=== PATIENT | female | born 1930 | race Caucasian/White ===

== ENCOUNTER 2017-07-10 08:33 | Emergency (ER) | payer MEDICARE, OTHER ==
[2017-07-10] MEDS ORDERED: Ondansetron 4 MG/2 ML SDV IVPUSH ONE (09:02)
[2017-07-10] MEDS ORDERED: HYDROmorphone 0.5 MG/0.5 ML SYRINGE IVPUSH ONE (09:04)
[2017-07-10] MEDS ORDERED: Sodium Chloride 0.9% 500 ML IV ONE (09:04)
[2017-07-10] MEDS ORDERED: Iopamidol 755 Mg/ML 100 ML Bottle IVPUSH ONE (09:08)
[2017-07-10] MEDS ORDERED: Sodium Chloride 0.9% 10 ML Syringe FLUSH ONE (09:08)
--- NOTE | 2017-07-10 09:12 | EDM.PDOC ---
ED HPI GENERAL MEDICAL PROBLEM - General Chief Complaint: Back Pain or Injury Stated Complaint: BACK PAIN Time Seen by Provider: 07/10/17 08:51 Source of Information: Reports: Patient, Family (Daughter) History Limitations: Reports: No Limitations - History of Present Illness INITIAL COMMENTS - FREE TEXT/NARRATIVE: The patient states that she developed nausea, vomiting, watery diarrhea, epigastric pain, and bilateral flank pain last night. She acknowledges that she has been feeling lightheaded when upright. She denies recent chest pain or palpitations. No recent urinary symptoms. The patient initially denied dyspnea, but later said that she had difficulty catching her breath. No prior similar symptoms. No recent illnesses. The patient was well up until last night. In the ED, the patient's initial blood pressure was found to be depressed at 90/ 60 with a heart rate elevated at 105, afebrile, saturating 88% on room air, however, the patient's oxygen saturation continued to decline after arrival. The patient's PCP is Dr. Rosibel Hadley. Abdomen Pain Score (Numeric/FACES): 5 - Related Data Allergies Allergy/AdvReac Type Severity Reaction Status Date / Time No Known Allergies Allergy Verified 07/10/17 10:40 Past Medical History Cardiovascular History: Reports: High Cholesterol (untreated), Hypertension Genitourinary History: Reports: Chronic Renal Insuffiency - Past Surgical History HEENT Surgical History: Reports: Cataract Surgery Female Surgical History: Reports: Hysterectomy Musculoskeletal Surgical History: Reports: Hip Replacement (right) Social & Family History - Tobacco Use Smoking Status *Q: Never Smoker Second Hand Smoke Exposure: No - Caffeine Use Caffeine Use: Reports: None - Alcohol Use Alcohol Use History: No - Recreational Drug Use Recreational Drug Use: No - Living Situation & Occupation Living situation: Reports: , with Spouse, Other (Independent living facility) Occupation: Retired ED ROS GENERAL - Review of Systems Review Of Systems: ROS reveals no pertinent complaints other than HPI. ED EXAM, GI/ABD - Physical Exam Exam: See Below Exam Limited By: No Limitations General Appearance: Alert, WD/WN, Mild Distress Eyes: Bilateral: Normal Appearance, EOMI Ears: Normal External Exam, Hearing Grossly Normal Nose: Normal Inspection, No Blood Throat/Mouth: Normal Inspection, Normal Lips, Normal Voice, No Airway Compromise Head: Atraumatic, Normocephalic Neck: Normal Inspection, Full Range of Motion Respiratory/Chest: No Respiratory Distress, Lungs Clear, Normal Breath Sounds, No Accessory Muscle Use, Other (Kyphotic) Cardiovascular: Regular Rate, Rhythm, No Edema, No Gallop, No JVD, No Murmur, No Rub, Other (2+ peripheral pulses. Cold nose, compared to forehead.) GI/Abdominal Exam: Normal Bowel Sounds, Soft, No Organomegaly, No Distention, No Abnormal Bruit, No Mass, Tender (Mild, central abdomen only. Essentially nontender elsewhere, including to the epigastric region.) (Female) Exam: Deferred Rectal (Female) Exam: Deferred Back Exam: Normal Inspection, Full Range of Motion, CVA Tenderness (L) (mild), CVA Tenderness (R) (mild) Extremities: Normal Inspection, Normal Range of Motion, No Pedal Edema, Normal Capillary Refill Neurological: Alert, Oriented, Normal Cognition, No Motor/Sensory Deficits Psychiatric: Normal Affect Skin Exam: Warm, Intact, Normal Color, No Rash, Diaphoretic (mild) Endotracheal Intubation - Endotracheal Intubation Time of Intubation: 10:05 ET Intubation Indication: Respiratory Failure Preparation: Suction, Balloon Tested, Difficult Airway Equip Pre-Oxygenation: Assisted with BVM, 100% FiO2 Anesthesia Meds: Propofol (4 mg) Placement: Orotracheal, Cuffed, Uncomplicated Placement Cords Visualized: Yes, Grade 2 ETT Size In mm: 8.0 Number of Attempts: 1 Confirmed By: CO2 Indicator, Bilateral Breath Sounds, Chest Xray Tube Secured By: By RT Course - Vital Signs Last Recorded V/S: Last Vital Signs Temp 37.0 C 07/10/17 08:40 Pulse 105 H 07/10/17 08:40 Resp 16 07/10/17 08:40 BP 90/60 07/10/17 08:40 Pulse Ox 88 L 07/10/17 08:40 Orthostatic Blood Pressure [ 84/53 Standing] Orthostatic Blood Pressure [ 74/55 Supine] - Orders/Labs/Meds Orders: Active Orders 24 hr Category Date Time Status EKG Documentation Completion [RC] STAT Care 07/10/17 09:06 Active Orthostatic Vital Signs [RC] ASDIRECTED Care 07/10/17 08:45 Active RT Ventilator ED, Adult [RC] ASDIRECTED Care 07/10/17 10:43 Active Chest 1V Frontal [CR] Stat Exams 07/10/17 09:20 Taken Chest 1V Frontal [CR] Stat Exams 07/10/17 10:20 Taken CBC W/O DIFF,HEMOGRAM [HEME] MOTH@0700 Lab 07/12/17 07:00 Ordered CBC W/O DIFF,HEMOGRAM [HEME] MOTH@0700 Lab 07/16/17 07:00 Ordered CBC W/O DIFF,HEMOGRAM [HEME] MOTH@0700 Lab 07/19/17 07:00 Ordered CBC W/O DIFF,HEMOGRAM [HEME] MOTH@0700 Lab 07/23/17 07:00 Ordered CBC W/O DIFF,HEMOGRAM [HEME] MOTH@0700 Lab 07/26/17 07:00 Ordered CBC W/O DIFF,HEMOGRAM [HEME] MOTH@0700 Lab 07/30/17 07:00 Ordered CULTURE BLOOD [BC] Stat Lab 07/10/17 09:40 Received CULTURE BLOOD [BC] Stat Lab 07/10/17 09:50 Received UA W/MICROSCOPIC [URIN] Stat Lab 07/10/17 10:31 Ordered Azithromycin [Zithromax] 500 mg Med 07/10/17 11:00 Active Sodium Chloride 0.9% [Normal Saline] 250 ml IV ONETIME Heparin Sodium/D5W [Heparin 25,000 Units in D5W 500 ML] Med 07/10/17 10:15 Active 25,000 units in 500 ml IV TITRATE Propofol [Diprivan 100 ML] 100 ml Med 07/10/17 10:45 Active IV TITRATE Sodium Chloride 0.9% [Normal Saline] 250 ml Med 07/10/17 09:15 Active IV ASDIRECTED Vancomycin Med 07/10/17 11:15 Ordered 625.95 mg IV Q12H Blood Culture x2 Reflex Set [OM.PC] Stat Oth 07/10/17 09:24 Ordered Desired Level of Sedation (RASS) [AST] Click To Edit Ot 07/10/17 10:42 Ordered NG [Nasogastric Orogastric Tube Insertion] [OM.PC] Ot 07/10/17 10:19 Ordered Routine Medication Orders Sodium Chloride (Normal Saline) 250 mls @ 80 mls/hr IV ASDIRECTED LUIS ANTONIO Last Admin: 07/10/17 09:26 Dose: 80 mls/hr Heparin Sodium/Dextrose (Heparin 25,000 Units In D5w 500 Ml) 25,000 units in 500 mls @ 10.015 mls/hr IV TITRATE LUIS ANTONIO; Protocol Last Admin: 07/10/17 10:39 Dose: 10.015 mls/hr Propofol (Diprivan 100 Ml) 100 mls @ 1.252 mls/hr IV TITRATE LUIS ANTONIO; Protocol Last Titration: 07/10/17 10:54 Dose: 30 mcg/kg/min, 7.511 mls/hr Titration: 07/10/17 10:49 Dose: 10 mcg/kg/min, 2.504 mls/hr Admin: 07/10/17 10:48 Dose: 5 mcg/kg/min, 1.252 mls/hr Azithromycin 500 mg/ Sodium (Chloride) 250 mls @ 250 mls/hr IV ONETIME ONE Stop: 07/10/17 11:59 Last Admin: 07/10/17 10:58 Dose: 250 mls/hr Vancomycin HCl (Vancomycin) 625.95 mg 15 mg/kg (625.95 mg) IV Q12H LUIS ANTONIO Labs: Laboratory Tests 07/10/17 07/10/17 07/10/17 Range/Units 08:55 08:55 08:55 WBC 11.37 H (3.98-10.04) K/mm3 RBC 3.81 L (3.98-5.22) M/mm3 Hgb 11.3 (11.2-15.7) gm/L Hct 34.8 (34.1-44.9) % MCV 91.3 (79.4-94.8) fl MCH 29.7 (25.6-32.2) pg MCHC 32.5 (32.2-35.5) g/dl RDW Std Deviation 41.9 (36.4-46.3) fL Plt Count 299 (182-369) K/mm3 MPV 10.6 (9.4-12.3) fl Neutrophils % (Manual) 81 H (40-60) % Band Neutrophils % 1 (0-10) % Lymphocytes % (Manual) 16 L (20-40) % Atypical Lymphs % 0 % Monocytes % (Manual) 2 (2-10) % Eosinophils % (Manual) 0 L (0.7-5.8) % Basophils % (Manual) 0 L (0.1-1.2) Platelet Estimate Adequate RBC Morph Comment Normal PT (9.5-12.1) SECONDS INR APTT (24-31) SECONDS D-Dimer, Quantitative 2.89 H (0.19-0.50) mg/L Puncture Site ABG pH (7.35-7.45) ABG pCO2 (35.0-45.0) mmHg ABG pO2 (80.0-100.0) mmHg ABG HCO3 (22.0-26.0) meq/L ABG O2 Saturation (96.0-97.0) % ABG Base Excess (-2-2.0) A-a Gradient mmHg O2 Delivery Device Oxygen Flow Rate FiO2 (21.00-100.00) % Sodium 135 L (136-145) mEq/L Potassium 4.2 (3.5-5.1) mEq/L Chloride 98 (98-107) mEq/L Carbon Dioxide 18 L (21-32) mEq/L Anion Gap 23.2 H (5-15) BUN 73 H (7-18) mg/dL Creatinine 3.6 H (0.55-1.02) mg/dL Est Cr Clr Drug Dosing 6.98 mL/min Estimated GFR (MDRD) 12 (>60) mL/min BUN/Creatinine Ratio 20.3 H (14-18) Glucose 239 H (83-115) mg/dL Lactic Acid (0.4-2.0) mmol/L Calcium 9.0 (8.5-10.1) mg/dL Magnesium 2.0 (1.8-2.4) mg/dl Total Bilirubin 0.5 (0.2-1.0) mg/dL AST 50 H (15-37) U/L ALT 29 (14-59) U/L Alkaline Phosphatase 75 (46-116) U/L Troponin I 1.900 H* (0.00-0.056) ng/mL Total Protein 7.8 (6.4-8.2) g/dl Albumin 3.1 L (3.4-5.0) g/dl Globulin 4.7 gm/dL Albumin/Globulin Ratio 0.7 L (1-2) Lipase 201 (73-393) U/L Urine Color (Yellow) Urine Appearance (Clear) Urine pH (5.0-8.0) Ur Specific [place] (1.005-1.030) Urine Protein (Negative) Urine Glucose (UA) (Negative) Urine Ketones (Negative) Urine Occult Blood (Negative) Urine Nitrite (Negative) Urine Bilirubin (Negative) Urine Urobilinogen (0.2-1.0) Ur Leukocyte Esterase (Negative) Urine RBC (0-5) /hpf Urine WBC (0-5) /hpf Ur Epithelial Cells (0-5) /hpf Urine Bacteria (FEW) /hpf Hyaline Casts (0-5) /lpf Urine Mucus (FEW) /hpf 07/10/17 07/10/17 07/10/17 Range/Units 08:55 09:40 09:45 WBC (3.98-10.04) K/mm3 RBC (3.98-5.22) M/mm3 Hgb (11.2-15.7) gm/L Hct (34.1-44.9) % MCV (79.4-94.8) fl MCH (25.6-32.2) pg MCHC (32.2-35.5) g/dl RDW Std Deviation (36.4-46.3) fL Plt Count (182-369) K/mm3 MPV (9.4-12.3) fl Neutrophils % (Manual) (40-60) % Band Neutrophils % (0-10) % Lymphocytes % (Manual) (20-40) % Atypical Lymphs % % Monocytes % (Manual) (2-10) % Eosinophils % (Manual) (0.7-5.8) % Basophils % (Manual) (0.1-1.2) Platelet Estimate RBC Morph Comment PT 11.4 (9.5-12.1) SECONDS INR 1.05 APTT 24 (24-31) SECONDS D-Dimer, Quantitative (0.19-0.50) mg/L Puncture Site Lt brachial ABG pH 7.11 L* (7.35-7.45) ABG pCO2 51.9 H (35.0-45.0) mmHg ABG pO2 59.0 L (80.0-100.0) mmHg ABG HCO3 15.7 L (22.0-26.0) meq/L ABG O2 Saturation 74.7 L (96.0-97.0) % ABG Base Excess 13.3 H (-2-2.0) A-a Gradient 388 mmHg O2 Delivery Device Nrb Oxygen Flow Rate 15.0 FiO2 0.00 L (21.00-100.00) % Sodium (136-145) mEq/L Potassium (3.5-5.1) mEq/L Chloride (98-107) mEq/L Carbon Dioxide (21-32) mEq/L Anion Gap (5-15) BUN (7-18) mg/dL Creatinine (0.55-1.02) mg/dL Est Cr Clr Drug Dosing mL/min Estimated GFR (MDRD) (>60) mL/min BUN/Creatinine Ratio (14-18) Glucose (83-115) mg/dL Lactic Acid 6.1 H (0.4-2.0) mmol/L Calcium (8.5-10.1) mg/dL Magnesium (1.8-2.4) mg/dl Total Bilirubin (0.2-1.0) mg/dL AST (15-37) U/L ALT (14-59) U/L Alkaline Phosphatase (46-116) U/L Troponin I (0.00-0.056) ng/mL Total Protein (6.4-8.2) g/dl Albumin (3.4-5.0) g/dl Globulin gm/dL Albumin/Globulin Ratio (1-2) Lipase (73-393) U/L Urine Color (Yellow) Urine Appearance (Clear) Urine pH (5.0-8.0) Ur Specific [place] (1.005-1.030) Urine Protein (Negative) Urine Glucose (UA) (Negative) Urine Ketones (Negative) Urine Occult Blood (Negative) Urine Nitrite (Negative) Urine Bilirubin (Negative) Urine Urobilinogen (0.2-1.0) Ur Leukocyte Esterase (Negative) Urine RBC (0-5) /hpf Urine WBC (0-5) /hpf Ur Epithelial Cells (0-5) /hpf Urine Bacteria (FEW) /hpf Hyaline Casts (0-5) /lpf Urine Mucus (FEW) /hpf 07/10/17 Range/Units 10:31 WBC (3.98-10.04) K/mm3 RBC (3.98-5.22) M/mm3 Hgb (11.2-15.7) gm/L Hct (34.1-44.9) % MCV (79.4-94.8) fl MCH (25.6-32.2) pg MCHC (32.2-35.5) g/dl RDW Std Deviation (36.4-46.3) fL Plt Count (182-369) K/mm3 MPV (9.4-12.3) fl Neutrophils % (Manual) (40-60) % Band Neutrophils % (0-10) % Lymphocytes % (Manual) (20-40) % Atypical Lymphs % % Monocytes % (Manual) (2-10) % Eosinophils % (Manual) (0.7-5.8) % Basophils % (Manual) (0.1-1.2) Platelet Estimate RBC Morph Comment PT (9.5-12.1) SECONDS INR APTT (24-31) SECONDS D-Dimer, Quantitative (0.19-0.50) mg/L Puncture Site ABG pH (7.35-7.45) ABG pCO2 (35.0-45.0) mmHg ABG pO2 (80.0-100.0) mmHg ABG HCO3 (22.0-26.0) meq/L ABG O2 Saturation (96.0-97.0) % ABG Base Excess (-2-2.0) A-a Gradient mmHg O2 Delivery Device Oxygen Flow Rate FiO2 (21.00-100.00) % Sodium (136-145) mEq/L Potassium (3.5-5.1) mEq/L Chloride (98-107) mEq/L Carbon Dioxide (21-32) mEq/L Anion Gap (5-15) BUN (7-18) mg/dL Creatinine (0.55-1.02) mg/dL Est Cr Clr Drug Dosing mL/min Estimated GFR (MDRD) (>60) mL/min BUN/Creatinine Ratio (14-18) Glucose (83-115) mg/dL Lactic Acid (0.4-2.0) mmol/L Calcium (8.5-10.1) mg/dL Magnesium (1.8-2.4) mg/dl Total Bilirubin (0.2-1.0) mg/dL AST (15-37) U/L ALT (14-59) U/L Alkaline Phosphatase (46-116) U/L Troponin I (0.00-0.056) ng/mL Total Protein (6.4-8.2) g/dl Albumin (3.4-5.0) g/dl Globulin gm/dL Albumin/Globulin Ratio (1-2) Lipase (73-393) U/L Urine Color Yellow (Yellow) Urine Appearance Slt cloudy H (Clear) Urine pH 5.0 (5.0-8.0) Ur Specific [place] 1.025 (1.005-1.030) Urine Protein Trace H (Negative) Urine Glucose (UA) Negative (Negative) Urine Ketones Trace H (Negative) Urine Occult Blood Trace-intact H (Negative) Urine Nitrite Negative (Negative) Urine Bilirubin Negative (Negative) Urine Urobilinogen 0.2 (0.2-1.0) Ur Leukocyte Esterase 1+ H (Negative) Urine RBC 0-5 (0-5) /hpf Urine WBC 5-10 H (0-5) /hpf Ur Epithelial Cells 0-5 (0-5) /hpf Urine Bacteria Many H (FEW) /hpf Hyaline Casts 0-5 (0-5) /lpf Urine Mucus Few (FEW) /hpf Meds: Medications Generic Name Dose Route Start Last Admin Trade Name Freq PRN Reason Stop Dose Admin Sodium Chloride 250 mls @ 80 mls/hr 07/10/17 09:15 07/10/17 09:26 Normal Saline IV 80 mls/hr ASDIRECTED LUIS ANTONIO Administration Heparin Sodium/Dextrose 25,000 units in 500 mls @ 10.015 mls/hr 07/10/17 10: 15 07/10/17 10:39 Heparin 25,000 Units In D5w 500 Ml IV 10.015 mls/hr TITRATE LUIS ANTONIO Administration Protocol 12 UNITS/KG/HR Propofol 100 mls @ 1.252 mls/hr 07/10/17 10:45 07/10/17 10:54 Diprivan 100 Ml IV 30 mcg/kg/min TITRATE LUIS ANTONIO 7.511 mls/hr Titration Protocol 5 MCG/KG/MIN Azithromycin 500 mg/ Sodium 250 mls @ 250 mls/hr 07/10/17 11:00 07/10/17 10: 58 Chloride IV 07/10/17 11:59 250 mls/hr ONETIME ONE Administration Vancomycin HCl 625.95 mg 07/10/17 11:15 Vancomycin 15 mg/kg (625.95 mg) IV Q12H LUIS ANTONIO Discontinued Medications Generic Name Dose Route Start Last Admin Trade Name Freq PRN Reason Stop Dose Admin Heparin Sodium (Porcine) 5,000 units 07/10/17 10:28 07/10/17 10:35 Heparin Sodium IVPUSH 07/10/17 10:29 2,520 units ONETIME ONE Administration Hydromorphone HCl 0.5 mg 07/10/17 09:04 07/10/17 09:36 Dilaudid IVPUSH 07/10/17 09:05 0.5 mg ONETIME ONE Administration Sodium Chloride 500 mls @ 1,000 mls/hr 07/10/17 09:04 07/10/17 09:33 Normal Saline IV 07/10/17 09:33 1,000 mls/hr .BOLUS ONE Administration Azithromycin 500 mg/ Sodium 250 mls @ 250 mls/hr 07/10/17 09:44 07/10/17 10: 58 Chloride IV 07/10/17 10:43 Not Given ONETIME ONE Ceftriaxone Sodium 1 gm/ 100 mls @ 200 mls/hr 07/10/17 09:43 07/10/17 10:31 Sodium Chloride IV 07/10/17 10:12 200 mls/hr ONETIME ONE Administration Propofol Confirm 07/10/17 09:58 07/10/17 10:49 Diprivan 100 Ml Administered 07/10/17 09:59 Not Given Dose 100 mls @ as directed .ROUTE .STK-MED ONE Iopamidol 100 ml 07/10/17 09:08 07/10/17 09:26 Isovue-370 (76%) IVPUSH 07/10/17 09:09 80 ml ONETIME ONE Administration Ondansetron HCl 4 mg 07/10/17 09:02 07/10/17 09:34 Zofran IVPUSH 07/10/17 09:03 4 mg ONETIME ONE Administration Propofol 40 mg 07/10/17 11:05 07/10/17 10:03 Diprivan 20 Ml IVPUSH 07/10/17 11:06 40 mg ONETIME ONE Administration Sodium Chloride 10 ml 07/10/17 09:08 07/10/17 09:26 Saline Flush FLUSH 07/10/17 09:09 10 ml ONETIME ONE Administration - Re-Assessments/Exams Free Text/Narrative Re-Assessment/Exam: 07/10/17 09:10 Clinically, I am most concerned about mesenteric ischemia, as the patient's abdominal pain is out of portion to that of her examination. I have spoken with the resource technician - the patient will undergo a CT of the abdomen and pelvis with IV contrast only. The CT angiogram would also indicate if the patient has a dissection. Workup to evaluate for pancreatitis is also underway. The patient is hypotensive. I ordered a 500 mL IV fluid bolus, but will consider pressors, if needed. 07/10/17 09:39 Portable chest radiograph reviewed. Cardiac silhouette is within normal limits. No pulmonary vascular congestion. No pleural effusions seen on this limited view. Bilateral pulmonary infiltrates, worse on the right than the left, noted, as well as generalized increased opacity of the lungs, consistent with pulmonary fibrosis, or, possibly, early ARDS. No pneumothorax. Formal read per the Radiologist pending. Notified that the patient's oxygen saturation has declined significantly. Her saturation is now 75% while on a nonrebreather mask. I will start empiric antibiotics. We will check her CODE STATUS; if she is full code, she likely requires intubation. If she does not want intubation, we will need to start BiPAP. 07/10/17 09:49 The patient appears to be struggling to breathe. She is quite diaphoretic. While reluctant, the patient has agreed to be intubated. 07/10/17 10:11 The ABG represents a combined respiratory and metabolic acidosis, with hypoxemia. The patient was intubated without difficulty using a Mac 2 blade, following 4 ml /40 mg propofol. ET tube size 8.0, secured at 21 cm at the incisors. Propofol drip will be started at 25 mcg/kg/m. 07/10/17 10:14 The patient's rapid clinical decline could, in theory, be explained by either an acute AK or a pulmonary embolus, although the patient denied having chest pain, and an acute AK would not explain the patient's watery diarrhea, central abdominal tenderness, or bilateral flank pain, and a PE would not explain the patient's nausea, vomiting, watery diarrhea, epigastric pain, or bilateral flank pain. The patient's D-dimer is significantly elevated at 2.89, and her troponin is significantly elevated at 1.900, however, the patient is in renal failure with a BUN/Cr of 73/3.6, rendering both of these values meaningless. We have no prior labs for comparison. I did not order a BNP, but since the patient is in renal failure, it would also be of no value. The patient's ECG shows a left bundle branch block, however, we have no prior ECG for comparison. Nevertheless, I do not see a contraindication to starting the patient on IV heparin to address both of these issues. 07/10/17 10:24 Post-intubation portal chest radiograph appears to demonstrate the ET tube only about 1 cm above the alex. I have asked it to be pulled back 1 cm. OGT tip is in the stomach via the esophagus. Bilateral pulmonary infiltrates have continued to worsen, and there is now near-total opacification of both lung silver. Of note, the patient received only 500 mL normal saline bolus, and has not received any IV fluid since. 07/10/17 10:56 CT of the abdomen and pelvis with IV contrast is read by Dr. [place] as: 1. No focal stenosis seen within the celiac axis, superior mesenteric or inferior mesenteric arteries. 2. Small bilateral pleural effusions with increased parenchymal densities within both lungs which are worse on the right side. Difficult to exclude pneumonia. 3. Other incidental findings as noted above. 07/10/17 11:01 At this time, it appears that the patient is likely suffering from pneumonia and ARDS. As above, she was started on Rocephin and azithromycin. I will add vancomycin. The above situation was discussed with numerous family members at the patient's bedside. Given the severity of the patient's illness, she will need transfer to [place]. They would prefer transfer to [facility]. 07/10/17 11:09 Case discussed with [facility] at 11:00. Case then discussed with Dr. Miller, ED physician at [facility], at 11:04. She accepts the patient for transfer. The patient will be flown by helicopter. The 2 portable chest radiographs and the CT scan of the abdomen and pelvis images have been pushed to [facility]. 07/10/17 11:26 The patient's blood pressure has continued to decline. Her MAP is now 60. I would prefer to be closer to 65 or 70. Because I'm concerned that the patient is suffering from ARDS, IV fluid would not be our first choice. I will start her on low-dose Levophed. 07/10/17 11:32 Post-intubation portable chest radiograph is read by Dr. [place] as: 1. Satisfactory position of endotracheal tube. 2. Nasogastric tube lies at the gastroesophageal junction and needs to be advanced. 3. Diffuse parenchymal densities most likely representing pulmonary edema. 4. Mild cardiomegaly. Departure - Departure Time of Disposition: 11:05 Disposition: DC/Tfer to [facility] 02 Condition: Critical Clinical Impression: Respiratory failure, High anion gap metabolic acidosis, Lactic acidosis, Renal failure, Elevated troponin, Elevated d-dimer, Hypotension - Discharge Information - My Orders Last 24 Hours: My Active Orders 07/10/17 08:45 Orthostatic Vital Signs [RC] ASDIRECTED 07/10/17 09:06 EKG Documentation Completion [RC] STAT 07/10/17 09:15 Sodium Chloride 0.9% [Normal Saline] 250 ml IV ASDIRECTED 07/10/17 09:20 Chest 1V Frontal [CR] Stat 07/10/17 09:24 Blood Culture x2 Reflex Set [OM.PC] Stat 07/10/17 09:40 CULTURE BLOOD [BC] Stat 07/10/17 09:50 CULTURE BLOOD [BC] Stat 07/10/17 10:15 Heparin Sodium/D5W [Heparin 25,000 Units in D5W 500 ML] 25,000 units in 500 ml IV TITRATE 07/10/17 10:19 NG [Nasogastric Orogastric Tube Insertion] [OM.PC] Routine 07/10/17 10:20 Chest 1V Frontal [CR] Stat 07/10/17 10:31 UA W/MICROSCOPIC [URIN] Stat 07/10/17 10:42 Desired Level of Sedation (RASS) [AST] Click To Edit 07/10/17 10:43 RT Ventilator ED, Adult [RC] ASDIRECTED 07/10/17 10:45 Propofol [Diprivan 100 ML] 100 ml IV TITRATE 07/10/17 11:00 Azithromycin [Zithromax] 500 mg Sodium Chloride 0.9% [Normal Saline] 250 ml IV ONETIME 07/10/17 11:15 Vancomycin 625.95 mg IV Q12H 07/12/17 07:00 CBC W/O DIFF,HEMOGRAM [HEME] MOTH@0707/16/17 07:00 CBC W/O DIFF,HEMOGRAM [HEME] MOTH@69907/19/17 07:00 CBC W/O DIFF,HEMOGRAM [HEME] MOTH@69907/23/17 07:00 CBC W/O DIFF,HEMOGRAM [HEME] MOTH@69907/26/17 07:00 CBC W/O DIFF,HEMOGRAM [HEME] MOTH@69907/30/17 07:00 CBC W/O DIFF,HEMOGRAM [HEME] MOTH@07 - Assessment/Plan Last 24 Hours: My Active Orders 07/10/17 08:45 Orthostatic Vital Signs [RC] ASDIRECTED 07/10/17 09:06 EKG Documentation Completion [RC] STAT 07/10/17 09:15 Sodium Chloride 0.9% [Normal Saline] 250 ml IV ASDIRECTED 07/10/17 09:20 Chest 1V Frontal [CR] Stat 07/10/17 09:24 Blood Culture x2 Reflex Set [OM.PC] Stat 07/10/17 09:40 CULTURE BLOOD [BC] Stat 07/10/17 09:50 CULTURE BLOOD [BC] Stat 07/10/17 10:15 Heparin Sodium/D5W [Heparin 25,000 Units in D5W 500 ML] 25,000 units in 500 ml IV TITRATE 07/10/17 10:19 NG [Nasogastric Orogastric Tube Insertion] [OM.PC] Routine 07/10/17 10:20 Chest 1V Frontal [CR] Stat 07/10/17 10:31 UA W/MICROSCOPIC [URIN] Stat 07/10/17 10:42 Desired Level of Sedation (RASS) [AST] Click To Edit 07/10/17 10:43 RT Ventilator ED, Adult [RC] ASDIRECTED 07/10/17 10:45 Propofol [Diprivan 100 ML] 100 ml IV TITRATE 07/10/17 11:00 Azithromycin [Zithromax] 500 mg Sodium Chloride 0.9% [Normal Saline] 250 ml IV ONETIME 07/10/17 11:15 Vancomycin 625.95 mg IV Q12H 07/12/17 07:00 CBC W/O DIFF,HEMOGRAM [HEME] MOTH@69907/16/17 07:00 CBC W/O DIFF,HEMOGRAM [HEME] MOTH@69907/19/17 07:00 CBC W/O DIFF,HEMOGRAM [HEME] MOTH@69907/23/17 07:00 CBC W/O DIFF,HEMOGRAM [HEME] MOTH@69907/26/17 07:00 CBC W/O DIFF,HEMOGRAM [HEME] MOTH@69907/30/17 07:00 CBC W/O DIFF,HEMOGRAM [HEME] MOTH@699
[2017-07-10] MEDS ORDERED: Sodium Chloride 0.9% 250 ML IV SCH (09:15)
[2017-07-10] MEDS ORDERED: cefTRIAXone 1 GM in Sodium Chloride 0.9% 100 ML IV ONE (09:43)
[2017-07-10] MEDS ORDERED: Azithromycin 500 MG in Sodium Chloride 0.9% 250 ML IV ONE ×2 (09:44→11:00)
[2017-07-10] MEDS ORDERED: Heparin Sodium/D5W 25,000 UNITS/500 ML BAG IV SCH (10:15)
[2017-07-10] MEDS ORDERED: Heparin Sodium 5,000 Units/ML Vial IVPUSH ONE (10:28)
--- NOTE | 2017-07-10 10:56 | CT ---
CT abdomen and pelvis Technique: Multiple axial sections were obtained from above the dome of the diaphragm inferiorly through the pubic symphysis. Intravenous contrast was utilized during the arterial phase. Reconstructed coronal and axial images were obtained. Findings: Small bilateral pleural effusions are seen. Patchy areas of increased density are seen within both lungs worse on the right side. Difficult to exclude areas of pneumonia. Celiac axis appears patent into branch vessels. Superior mesenteric artery is patent. Inferior mesenteric artery is patent. Renal arteries show no focal stenosis. Several cysts are seen within both kidneys with largest cyst being on the right side which measures 1.6 cm. Aorta shows no stenosis or aneurysm. Common iliac arteries and external iliac arteries are patent. Proximal aspect of the internal iliac arteries are patent. Visualized portions of the liver shows no discrete abnormality. Spleen size is normal. Adrenal glands show no nodule. No retroperitoneal adenopathy is seen. Gallbladder contains no calcified gallstones. No mesenteric abnormalities are seen. No pelvic mass or adenopathy is seen. Pancreas shows no discrete abnormality. Artifact within the pelvis from left hip prosthesis is noted. 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 Spondylolisthesis at L5-S1 measures about 1.3 cm. Severe compression deformity seen within T9. Impression: 1. No focal stenosis seen within the celiac axis, superior mesenteric or inferior mesenteric arteries. 2. Small bilateral pleural effusions with increased parenchymal densities within both lungs which are worse on the right side. Difficult to exclude pneumonia. 3. Other incidental findings as noted above. Diagnostic code #3
[2017-07-10] MEDS ORDERED: EPINEPHrine 1:10,000 1 MG/10 ML Syringe ONE (11:00)
[2017-07-10] MEDS ORDERED: Propofol 200 MG/20 ML SDV IVPUSH ONE (11:05)
[2017-07-10] MEDS ORDERED: Vancomycin 500 MG SDV IV SCH (11:15)
--- NOTE | 2017-07-10 11:27 | CR ---
Chest: Frontal view of the chest was obtained. Comparison: No prior chest x-ray. Heart size is enlarged. Tortuous thoracic aorta is seen. Increased density is seen within the chest most likely due to pulmonary edema. Endotracheal tube is seen lying above the alex and below the clavicles in satisfactory position. Nasogastric tube is seen with tip lying at the gastroesophageal junction and is not within the stomach. Bony structures are grossly intact. Impression: 1. Satisfactory position of endotracheal tube. 2. Nasogastric tube lies at the gastroesophageal junction and needs to be advanced. 3. Diffuse parenchymal densities most likely representing pulmonary edema. 4. Mild cardiomegaly. Diagnostic code #5
[2017-07-10] MEDS ORDERED: Norepinephrine 4 MG in Dextrose 5% in Water 246 ML IV SCH ×2 (11:30)
[2017-07-10] MEDS ORDERED: EPINEPHrine 1 MG/ML 30 ML MDV IVPUSH ONE (11:58)
--- NOTE | 2017-07-10 14:34 | CR ---
Chest: Frontal view of the chest was obtained. Comparison: No previous chest x-ray. Heart size at the upper limits of normal. Increased density is seen centrally raising the possibility of early pulmonary edema. Lungs otherwise are clear. Degenerative change is noted within both shoulders. Impression: 1. Findings suspicious for early pulmonary edema. Diagnostic code #5
== END 2017-07-10 12:45 ==
LOC: JD.ED 08:33
DX: J96.90 Respiratory failure, unspecified, unspecified whether with hypoxia or hypercapnia (principal); I95.9 Hypotension, unspecified; E87.2 Acidosis; I12.9 Hypertensive chronic kidney disease with stage 1 through stage 4 chronic kidney disease, or unspecified chronic kidney disease; N18.9 Chronic kidney disease, unspecified; R79.89 Other specified abnormal findings of blood chemistry; E78.00 Pure hypercholesterolemia, unspecified
CPT/HCPCS: 31500; 36415; 36600; 51702; 71045; 74177; 80053; 81001; 82803; 82962; 83605; 83690; 83735; 84484; 85007; 85027; 85379; 85610; 85730; 87040; 87086; 92950; 93005; 96365; 96366; 96367; 96368; 96375; 96376; 99291; 99292; J0171; J0456; J0696; J1170; J1644; J2405; J3370; J7030; J7040; J7050; J7060; Q9967; J2704; J3490